=== PATIENT | male | born 1965 | race African-American/Black ===

== ENCOUNTER → 2018-06-24 | Outpatient (CLI) | payer MEDICARE, MEDICAID ==
--- NOTE | 2018-06-24 13:37 | RADIOLOGY REPORT (SQ) ---
EXAM DESCRIPTION: MRI LUMBAR SPINE WITHOUT COMPLETED DATE/TIME: 06/24/2018 1:09 pm REASON FOR STUDY: M51.37 OTHER INTERVERTEBRAL DISC DEGENERATION, LUMBOSACRAL REGION M79.10 M51.37 O THER INTERVERTEBRAL DISC DEGENERATION, LUMBOSACRAL R COMPARISON: None. TECHNIQUE: Sagittal and Axial imaging includes T1, T2, STIR and gradient echo sequences. Coronal T2/ HASTE imaging. LIMITATIONS: None. FINDINGS: VISUALIZED UPPER ABDOMEN: Limited evaluation. No acute or suspicious findings suggested. SEGMENTATION: No transitional anatomy. The lowest well-developed disc space is labeled L5-S1. ALIGNMENT: Anatomic. VERTEBRAE: Intact. BONE MARROW: Normal. No marrow replacement or reactive changes. DISC SIGNAL: Normal. No significant abnormal signal or loss of height. POSTERIOR ELEMENTS: Generally intact. No pars defect evident. HARDWARE: None in the spine. CORD AND CONUS: Normal in size and signal intensity. Conus at the L1-2 level. SOFT TISSUES: No aortic aneurysm seen. No bulky retroperitoneal adenopathy or mass. No paraspinal mas s or fluid. T12-L1: Unremarkable L1-L2: Unremarkable L2-L3: Mild bilateral facet arthropathy. No central or foraminal stenosis L3-L4: Mild posterior diffuse disc bulging, mild bilateral facet arthropathy. Mild bilateral inferio r foraminal narrowing without exiting L3 nerve root impingement. L4-L5: Mild diffuse posterior disc bulging, moderate bilateral facet and ligament hypertrophy. No ce ntral stenosis. Moderate bilateral foraminal narrowing without definite exiting L4 nerve root imping ement. L5-S1: Minimal posterior disc bulging, mild bilateral facet hypertrophy. No central stenosis. Mild bilateral foraminal narrowing without exit L5 nerve root impingement SACRUM: Visualized upper sacrum intact. OTHER: No other significant findings. IMPRESSION: Mild lower lumbar degenerative changes as above TECHNICAL DOCUMENTATION: JOB ID: [id number] [employer]- All Rights Reserved Reading location - IP/workstation name: [email or web address]
== END ==
LOC: RAD 13:28
PROVIDERS: ATTEND Physician Assistant
DX: M51.37 Other intervertebral disc degeneration, lumbosacral region (principal); M79.10 Myalgia, unspecified site
CPT/HCPCS: 72148